=== PATIENT | female | born 1940 | race African-American/Black ===

== ENCOUNTER 2024-04-17 07:14 | Outpatient (CLI) | payer OTHER ==
[~2024-04-17 07:14] MED LIST: PANTOPRAZOLE SO40 MG; SUCRALFATE1 G
== END 2024-04-17 07:15 | disposition home or self-care (01) ==
LOC: NUCLEAR 07:14
DX: I11.9 Hypertensive heart disease without heart failure (principal)
CPT/HCPCS: 78452; 93017; A9500; J0153